=== PATIENT | male | born 1970 | race African-American/Black ===

== ENCOUNTER 2025-01-28 22:44 | Inpatient (IN) | payer OTHER ==
[~2025-01-28] VITALS: Ht 157.5 cm; Wt 100.0 kg
[~2025-01-28 22:44] MED LIST: AMLO-257 PO; CEPH-558 PO; PERCT PO; SULF1TAB41 PO; ZOLP-280 PO
[2025-01-29] MEDS ORDERED: SODIUM CHLORIDE 0.9% 1,000 ML IV ONE
[2025-01-29] MEDS ORDERED: 0.9% SODIUM CHLORIDE 10 ML SYRINGE IVP PRN (00:15)
[2025-01-29] MEDS ORDERED: CefTRIAXone 1 GM/DEXTROSE 50 ML IV ONE (00:15)
[2025-01-29 00:50] LABS: PLATELET COUNT (AUTO) 412 K/uL (150-450); RED BLOOD CELL COUNT(AUTO) 4.40 MIL/uL (4.50-5.90); RED CELL DISTRIBUTION WIDTH 18.1 % (11.5-14.5); WHITE BLOOD COUNT (AUTO) 11.1 K/uL (4.5-11.0)
[2025-01-29 00:59] LABS: CALCIUM, TOTAL 9.2 mg/dL (8.8-10.5); CREATININE 0.75 mg/dL (0.60-1.30); GLOMERULAR FILTR. RATE CALC > 60 mL/min (>60); GLUCOSE,RANDOM 74 mg/dL (70-110); SODIUM SERUM 138 mmol/L (136-145); UREA NITROGEN, BLOOD 11 mg/dL (7-18)
[2025-01-29 01:01] LABS: APPEARANCE,URINE HAZY (CLEAR); GLUCOSE, URINE (UA) NEGATIVE (NEGATIVE); LEUKOCYTE ESTERASE ,URINE LARGE (NEGATIVE); NITRATE,URINE NEGATIVE (NEGATIVE); OCCULT BLOOD,URINE SMALL (NEGATIVE); SPECIFIC GRAVITIY, URINE 1.032 (1.003-1.030)
[2025-01-29 01:04] LABS: ASPARTATE AMINOTRANSFERASE 23.0 U/L (15-37); C-REACTIVE PROTEIN QUANT 6.22 mg/dL (0.00-0.30); TOTAL PROTEIN, SERUM 8.4 g/dL (6.4-8.2)
[2025-01-29 01:07] LABS: TROPONIN I-HIGH SENSITIVITY 15 ng/L (<76)
[2025-01-29 01:08] LABS: LACTIC ACID 1.5 mmol/L (0.4-2.0)
[2025-01-29 01:15] LABS: SQUAMOUS EPITHELIAL CELL,UR Rare /LPF (None Seen)
[2025-01-29 01:16] LABS: SULFOSALICYLIC ACID,URINE 3+ (Negative)
[2025-01-29] MEDS: SODIUM CHLORIDE 0.9% 2,000 ML IV ONE (01:19)
[2025-01-29] MEDS: ONDANSETRON HCL 4 MG/2 ML VIAL IVP ONE (01:19)
[2025-01-29 05:30] VITALS: BP 155/72; PULSE 57; RESP 18; TEMP 98.2; O2SAT 100
[2025-01-29] MEDS ORDERED: ACETAMINOPHEN 325 MG TABLET PO PRN (06:00)
[2025-01-29] MEDS ORDERED: MAGNESIUM HYDROXIDE SUSPENSION 30 ML UDCUP PO PRN (06:00)
[2025-01-29] MEDS ORDERED: ZOLPIDEM TARTRATE 5 MG TABLET PO PRN (06:00)
[2025-01-29] MEDS ORDERED: BISACODYL 10 MG RECTAL RECTAL SUPPOSITORY PR PRN (06:00)
[2025-01-29] MEDS: *CLINICAL-LEVOFLOXACIN IVPB DOSING CLINICAL ONE (06:11)
[2025-01-29 07:45] VITALS: BP 148/66; PULSE 43; RESP 19; TEMP 98; O2SAT 97
[2025-01-29] MEDS: LEVOFLOXACIN 750 MG/D5% WATER 150 ML IV SCH (08:00)
[2025-01-29] MEDS: HEPARIN SODIUM,PORCINE 5,000 UNITS/ML VIAL SQ SCH (08:00)
[2025-01-29] MEDS ORDERED: IOHEXOL 350 MG/ML 100 ML VIAL ONE (08:59)
[2025-01-29] MEDS ORDERED: SODIUM CHLORIDE 0.9% 100 ML ONE (08:59)
[2025-01-29] MEDS: DOCUSATE SODIUM 100 MG CAPSULE PO SCH (09:55)
[2025-01-29] MEDS: PANTOPRAZOLE SODIUM 40 MG DR TABLET PO SCH (09:55)
[2025-01-29] MEDS: HYDROCODONE/ACETAMINOPHEN 5-325 MG TABLET PO PRN (09:59)
[2025-01-29] MEDS: DEXTROSE 5%-0.45% SODIUM CHL 1,000 ML IV SCH (14:15)
[2025-01-29 14:50] LABS: PH, GASTRIC OKAY
[2025-01-29 14:52] LABS: OCCULT BLOOD,GASTRIC FLUID POSITIVE (NEGATIVE)
[2025-01-29 15:00] VITALS: BP 157/73; PULSE 46; RESP 19; TEMP 98.2; O2SAT 97
[2025-01-29] MEDS ORDERED: INSULIN LISPRO 100 UNITS/ML SQ PRN (15:30)
[2025-01-29] MEDS: VANCOMYCIN 1GM/WATER(PEG/NADA) 200 ML IV SCH (15:58)
[2025-01-29] MEDS: ONDANSETRON HCL 4 MG/2 ML VIAL IVP PRN (16:02)
[2025-01-29] MEDS: DEXTROSE 50%-WATER 25 GM/50 ML SYRINGE IVP PRN (17:51)
[2025-01-29 18:50] LABS: GLUCOMETER DEV NAME(LOC) 6N.1B; GLUCOSE,POINT OF CARE 73 MG/DL (70-110)
[2025-01-29 18:50] LABS: GLUCOMETER DEV NAME(LOC) 6N.1B; GLUCOSE,POINT OF CARE 60 MG/DL (70-110)
[2025-01-29 19:13] VITALS: BP 148/78; PULSE 60; RESP 18; TEMP 97.5; O2SAT 98
[2025-01-29] MEDS ORDERED: SODIUM CHLORIDE 0.9% 500 ML IV ONE (20:01)
[2025-01-29] MEDS: PANTOPRAZOLE SODIUM 80 MG in SODIUM CHLORIDE 0.9% 100 ML IV SCH (20:13)
[2025-01-29] MEDS: MORPHINE SULFATE 2 MG/ML SYRINGE IVP PRN (20:24)
[2025-01-30 01:50] LABS: GLUCOMETER DEV NAME(LOC) 4E.2; GLUCOSE,POINT OF CARE 86 MG/DL (70-110)
[2025-01-30 05:27] VITALS: BP 148/64; PULSE 56; RESP 18; TEMP 98.2; O2SAT 100
[2025-01-30 07:13] LABS: PLATELET COUNT (AUTO) 345 K/uL (150-450); RED BLOOD CELL COUNT(AUTO) 3.93 MIL/uL (4.50-5.90); RED CELL DISTRIBUTION WIDTH 18.2 % (11.5-14.5); WHITE BLOOD COUNT (AUTO) 10.6 K/uL (4.5-11.0)
[2025-01-30 07:20] LABS: CALCIUM, TOTAL 8.3 mg/dL (8.8-10.5); CREATININE 0.75 mg/dL (0.60-1.30); GLOMERULAR FILTR. RATE CALC > 60 mL/min (>60); GLUCOSE,RANDOM 83 mg/dL (70-110); SODIUM SERUM 139 mmol/L (136-145); UREA NITROGEN, BLOOD 7 mg/dL (7-18)
[2025-01-30 07:41] LABS: GLUCOMETER DEV NAME(LOC) 6N.1B; GLUCOSE,POINT OF CARE 80 MG/DL (70-110)
[2025-01-30 07:41] LABS: GLUCOMETER DEV NAME(LOC) 6N.1B; GLUCOSE,POINT OF CARE 92 MG/DL (70-110)
[2025-01-30 08:00] VITALS: BP 154/66; PULSE 52; RESP 19; TEMP 97.3; O2SAT 99
[2025-01-30] MEDS ORDERED: SODIUM CHLORIDE 0.9% 500 ML IV ONE (10:30)
[2025-01-30] MEDS ORDERED: SODIUM CHLORIDE 0.9% 1,000 ML ONE (10:34)
[2025-01-30] MEDS ORDERED: FentaNYL CITRATE PF 100 MCG/2 ML VIAL IVP PRN (11:45)
[2025-01-30] MEDS ORDERED: MEPERIDINE-PF 25 MG/ML VIAL IVP PRN (11:45)
[2025-01-30] MEDS ORDERED: FentaNYL CITRATE PF 100 MCG/2 ML VIAL ONE (12:05)
[2025-01-30] MEDS ORDERED: MIDAZOLAM HCL 2 MG/2 ML VIAL ONE (12:05)
[2025-01-30] MEDS: SODIUM CHLORIDE 0.9% 1,000 ML IV ONE (12:33)
[2025-01-30] MEDS ORDERED: GADOTERATE MEGLUMINE 10 MMOL/20 ML VIAL IVP ONE (14:37)
[2025-01-30] MEDS ORDERED: POTASSIUM CHL 10 MEQ/WATER 50 ML IV PRN (15:30)
[2025-01-30 16:46] VITALS: BP 151/75; PULSE 56; RESP 18; TEMP 98.4; O2SAT 99
[2025-01-30] MEDS: POTASSIUM CHLORIDE 20 MEQ ER TABLET PO PRN (17:00)
[2025-01-30] MEDS: OXYGEN THERAPY IH SCH (20:00)
[2025-01-30 20:43] VITALS: BP 159/74; PULSE 48; RESP 20; TEMP 98.1; O2SAT 100
[2025-01-30] MEDS: ZOLPIDEM TARTRATE 5 MG TABLET PO PRN (21:08)
[2025-01-30 22:21] LABS: GLUCOMETER DEV NAME(LOC) 4E.2; GLUCOSE,POINT OF CARE 61 MG/DL (70-110)
[2025-01-30 22:26] LABS: GLUCOMETER DEV NAME(LOC) 6N.1B; GLUCOSE,POINT OF CARE 71 MG/DL (70-110)
[2025-01-30 22:26] LABS: GLUCOMETER DEV NAME(LOC) 6N.1B; GLUCOSE,POINT OF CARE 73 MG/DL (70-110)
[2025-01-31 06:40] LABS: GLUCOMETER DEV NAME(LOC) 4E.2; GLUCOSE,POINT OF CARE 95 MG/DL (70-110)
[2025-01-31 07:52] VITALS: BP 148/79; PULSE 54; RESP 19; TEMP 98.2; O2SAT 99
[2025-01-31 08:13] LABS: PLATELET COUNT (AUTO) 305 K/uL (150-450); RED BLOOD CELL COUNT(AUTO) 3.88 MIL/uL (4.50-5.90); RED CELL DISTRIBUTION WIDTH 17.6 % (11.5-14.5); WHITE BLOOD COUNT (AUTO) 6.2 K/uL (4.5-11.0)
[2025-01-31 08:25] LABS: CALCIUM, TOTAL 7.9 mg/dL (8.8-10.5); CREATININE 0.56 mg/dL (0.60-1.30); GLOMERULAR FILTR. RATE CALC > 60 mL/min (>60); GLUCOSE,RANDOM 76 mg/dL (70-110); SODIUM SERUM 140 mmol/L (136-145); UREA NITROGEN, BLOOD 7 mg/dL (7-18)
[2025-01-31 13:30] LABS: GLUCOMETER DEV NAME(LOC) 6N.1B; GLUCOSE,POINT OF CARE 69 MG/DL (70-110)
[2025-01-31 17:04] VITALS: BP 146/82; PULSE 56; RESP 19; TEMP 98; O2SAT 98
[2025-01-31 18:45] VITALS: BP 167/79; PULSE 51; RESP 18; TEMP 98.2; O2SAT 100
[2025-01-31 20:40] LABS: GLUCOMETER DEV NAME(LOC) 4E.2; GLUCOSE,POINT OF CARE 77 MG/DL (70-110)
[2025-01-31 20:40] LABS: GLUCOMETER DEV NAME(LOC) 4E.2; GLUCOSE,POINT OF CARE 80 MG/DL (70-110)
[2025-01-31 21:03] VITALS: BP 155/82; PULSE 54; RESP 18; TEMP 98.4; O2SAT 98
[2025-01-31 22:01] LABS: GLUCOMETER DEV NAME(LOC) 5S.2D; GLUCOSE,POINT OF CARE 84 MG/DL (70-110)
[2025-02-01 00:40] VITALS: BP 159/80; PULSE 61; RESP 20; TEMP 98.4; O2SAT 99
[2025-02-01 04:01] VITALS: RESP 19
[2025-02-01 08:16] LABS: GLUCOMETER DEV NAME(LOC) 5N.1D; GLUCOSE,POINT OF CARE 93 MG/DL (70-110)
[2025-02-01 12:10] LABS: GLUCOMETER DEV NAME(LOC) 5S.1D; GLUCOSE,POINT OF CARE 85 MG/DL (70-110)
[2025-02-01 15:15] VITALS: BP 135/78; PULSE 58; RESP 18; TEMP 98; O2SAT 98
[2025-02-01 15:59] LABS: PLATELET COUNT (AUTO) 262 K/uL (150-450); RED BLOOD CELL COUNT(AUTO) 3.88 MIL/uL (4.50-5.90); RED CELL DISTRIBUTION WIDTH 18.0 % (11.5-14.5); WHITE BLOOD COUNT (AUTO) 6.1 K/uL (4.5-11.0)
[2025-02-01 16:08] LABS: CALCIUM, TOTAL 8.0 mg/dL (8.8-10.5); CREATININE 0.64 mg/dL (0.60-1.30); GLOMERULAR FILTR. RATE CALC > 60 mL/min (>60); GLUCOSE,RANDOM 102 mg/dL (70-110); SODIUM SERUM 141 mmol/L (136-145); UREA NITROGEN, BLOOD 6 mg/dL (7-18)
[2025-02-01 16:09] LABS: CALCIUM, TOTAL 8.0 mg/dL (8.8-10.5); CREATININE 0.64 mg/dL (0.60-1.30); GLOMERULAR FILTR. RATE CALC > 60 mL/min (>60); GLUCOSE,RANDOM 103 mg/dL (70-110); SODIUM SERUM 141 mmol/L (136-145); UREA NITROGEN, BLOOD 6 mg/dL (7-18)
[2025-02-01 16:13] LABS: ASPARTATE AMINOTRANSFERASE 14 U/L (15-37); TOTAL PROTEIN, SERUM 6.3 g/dL (6.4-8.2)
[2025-02-01 20:23] VITALS: BP 163/79; PULSE 56; RESP 18; TEMP 98.2; O2SAT 98
[2025-02-01 20:37] VITALS: PULSE 61
[2025-02-01] MEDS: VANCOMYCIN 1.25 GM/WATER(PEG) 250 ML IV SCH (20:42)
[2025-02-01 23:20] VITALS: BP 165/80; PULSE 58; RESP 18; TEMP 98.4; O2SAT 97
[2025-02-02 01:16] LABS: GLUCOMETER DEV NAME(LOC) 5S.1D; GLUCOSE,POINT OF CARE 95 MG/DL (70-110)
[2025-02-02] MEDS ORDERED: SODIUM CHLORIDE 0.9% 500 ML IV ONE (03:06)
[2025-02-02] MEDS: PIPERACILLIN/TAZO 3.375 GM/D5W 50 ML IV SCH (03:16)
[2025-02-02 03:20] VITALS: BP 142/81; PULSE 54; RESP 18; TEMP 98.2; O2SAT 100
[2025-02-02 06:17] LABS: PLATELET COUNT (AUTO) 267 K/uL (150-450); RED BLOOD CELL COUNT(AUTO) 3.81 MIL/uL (4.50-5.90); RED CELL DISTRIBUTION WIDTH 17.6 % (11.5-14.5); WHITE BLOOD COUNT (AUTO) 6.2 K/uL (4.5-11.0)
[2025-02-02 06:24] LABS: CALCIUM, TOTAL 8.1 mg/dL (8.8-10.5); CREATININE 0.47 mg/dL (0.60-1.30); GLOMERULAR FILTR. RATE CALC > 60 mL/min (>60); GLUCOSE,RANDOM 73 mg/dL (70-110); SODIUM SERUM 141 mmol/L (136-145); UREA NITROGEN, BLOOD 5 mg/dL (7-18)
[2025-02-02 07:06] LABS: GLUCOMETER DEV NAME(LOC) 6S.1D; GLUCOSE,POINT OF CARE 65 MG/DL (70-110)
[2025-02-02 07:06] LABS: GLUCOMETER DEV NAME(LOC) 6S.1D; GLUCOSE,POINT OF CARE 157 MG/DL (70-110)
[2025-02-02 08:00] VITALS: RESP 19
[2025-02-02 12:01] LABS: GLUCOMETER DEV NAME(LOC) 6N.2C; GLUCOSE,POINT OF CARE 121 MG/DL (70-110)
[2025-02-02] MEDS ORDERED: AMOX-457 PO (14:30)
[2025-02-02 15:00] VITALS: BP 144/70; PULSE 52; RESP 19; TEMP 98; O2SAT 97
[2025-02-02] MEDS ORDERED: LEVO750T68 PO (16:29)
[2025-02-02] MEDS ORDERED: PANT-31 PO (16:31)
== END 2025-02-02 17:35 | disposition home or self-care (01) | DRG 241 ==
LOC: EMS 22:44 → EDH 01-29 02:53 → 4E 01-29 05:22 → 5S 01-31 18:55 → 6S 02-02 02:08
PROVIDERS: ADMIT Internal Medicine; ATTEND Internal Medicine
PROC: 0D9670Z Drainage of Stomach with Drainage Device, Via Natural or Artificial Opening (ICD-10-PCS; principal; 2025-01-29)
PROC: 05H933Z Insertion of Infusion Device into Right Brachial Vein, Percutaneous Approach (ICD-10-PCS; 2025-01-29)
PROC: 0DB98ZX Excision of Duodenum, Via Natural or Artificial Opening Endoscopic, Diagnostic (ICD-10-PCS; 2025-01-30)
PROC: 0DB78ZX Excision of Stomach, Pylorus, Via Natural or Artificial Opening Endoscopic, Diagnostic (ICD-10-PCS; 2025-01-30)
DX: K29.01 Acute gastritis with bleeding (principal); K21.01 Gastro-esophageal reflux disease with esophagitis, with bleeding; K22.11 Ulcer of esophagus with bleeding; K31.1 Adult hypertrophic pyloric stenosis; G82.20 Paraplegia, unspecified; I95.9 Hypotension, unspecified; M46.28 Osteomyelitis of vertebra, sacral and sacrococcygeal region; K29.81 Duodenitis with bleeding; E11.69 Type 2 diabetes mellitus with other specified complication; I10 Essential (primary) hypertension; K31.89 Other diseases of stomach and duodenum; E87.6 Hypokalemia; N39.0 Urinary tract infection, site not specified; S31.30XA Unspecified open wound of scrotum and testes, initial encounter; X58.XXXA Exposure to other specified factors, initial encounter; Y93.89 Activity, other specified; Y92.89 Other specified places as the place of occurrence of the external cause; Y99.8 Other external cause status
CPT/HCPCS: 36245; 36569; 71045; 72197; 74177; 76937; 80048; 80053; 80076; 80202; 81001; 81002; 82271; 82962; 83605; 83690; 84132; 84145; 84484; 85025; 85610; 85651; 86140; 87040; 87070; 87077; 87081; 87086; 87186; 87205; 88305; 93005; 96365; 96375; 99285; G0378; J0713; J1644; J1956; J2250; J2270; J2405; J2470; J2543; J3010; J7030; J7040; J7050; J7060; 36415-L1; 36415-TC